=== PATIENT | male | born 1995 | race Caucasian/White ===

== ENCOUNTER 2019-03-28 20:24 | Emergency (ER) | payer SELFPAY ==
[2019-03-28] MEDS ORDERED: CODEINE 30MG/APAP 300MG TAB ONE (21:06)
--- NOTE | 2019-03-28 21:25 | ER ---
Nurse's Notes [facility] Name: Ward Lambert Age: 23 yrs Sex: Male : 1995 Arrival Date: 03/28/2019 Time: 20:27 Bed 18 Private MD: Diagnosis: Chest pain on breathing Presentation: 03/28 20:40 Presenting complaint: Patient states: R sided chest pain, sharp, started this morning. ca1 States, "I cannot take deep breaths because it hurts" Denies N/V/lightheadedness. Denies cough and congestion. Transition of care: patient was not received from another setting of care. Onset of symptoms was March 28, 2019. Risk Assessment: Do you want to hurt yourself or someone else? Patient reports no desire to harm self or others. Initial Sepsis Screen: Does the patient meet any 2 criteria? No. Patient's initial sepsis screen is negative. Does the patient have a suspected source of infection? No. Patient's initial sepsis screen is negative. Care prior to arrival: None. 20:40 Method Of Arrival: Ambulatory ca1 20:40 Acuity: DAMARIS 3 ca1 Historical: - Allergies: 20:43 No Known Allergies; ca1 - Home Meds: 20:43 None [Active]; ca1 - PMHx: 20:43 None; ca1 - PSHx: 20:43 None; ca1 - Immunization history:: Adult Immunizations not up to date, Flu vaccine is not up to date. - Coronavirus screen:: The patient has NOT traveled to [place], [place], or [place] in the past 14 days. The patient has NOT had contact with known/suspected case of Coronavirus?. - Social history:: Smoking status: Patient reports the use of cigarette tobacco products, smokes one-half pack cigarettes per day. - Family history:: not pertinent. - Ebola Screening: : Patient negative for fever greater than or equal to 101.5 degrees Fahrenheit, and additional compatible Ebola Virus Disease symptoms Patient denies exposure to infectious person Patient denies travel to an Ebola-affected area in the 21 days before illness onset No symptoms or risks identified at this time. Screenin:10 Abuse screen: Denies threats or abuse. Nutritional screening: No deficits noted. ea Tuberculosis screening: No symptoms or risk factors identified. Fall Risk None identified. Assessment: 21:05 General: Appears in no apparent distress. Behavior is calm, cooperative, appropriate ea for age. Pain: Complains of pain in chest. Neuro: Level of Consciousness is awake, alert, obeys commands, Oriented to person, place, time, situation. Cardiovascular: Patient's skin is warm and dry. Respiratory: Airway is patent Respiratory effort is even, unlabored, Respiratory pattern is regular, symmetrical. Derm: Skin is pink, warm \\T\\ dry. 21:10 Reassessment: Patient and/or family updated on plan of care and expected duration. Pain ea level reassessed. Patient is alert, oriented x 3, equal unlabored respirations, skin warm/dry/pink. Discharge instruction given to [patient, verbalized the understanding of instruction. Pt left ED ambulatory accompanied by significant other. Vital Signs: 20:43 BP 112 / 86; Pulse 80; Resp 16 S; Temp 98(O); Pulse Ox 97% on R/A; Weight 58.97 kg (R); ca1 Height 5 ft. 6 in. (167.64 cm) (R); Pain 8/10; 20:43 Body Mass Index 20.98 (58.97 kg, 167.64 cm) ca1 ED Course: 20:27 Patient arrived in ED. cl3 20:42 Triage completed. ca1 20:43 Arm band placed on right wrist. EKG completed in triage. Results shown to MD. ca1 20:45 Wilda Romero MD is Attending Physician. ma2 20:58 Ml Mcdowell RN is Primary Nurse. ea 21:05 Pulse ox on. NIBP on. ea 21:11 Patient has correct armband on for positive identification. Bed in low position. Call ea light in reach. 21:11 No provider procedures requiring assistance completed. Patient did not have IV access ea during this emergency room visit. Patient maintains SpO2 saturation greater than 95% on room air. Administered Medications: 21:04 Drug: Tylenol #3 (300 mg-30 mg) 2 tabs {Note: RASS 0.} Route: PO; ea 21:11 Follow up: Response: Medication administered at discharge. ea Outcome: 21:04 Discharge ordered by . ma2 21:11 Discharged to home ambulatory, with significant other. ea 21:11 Condition: stable 21:11 Discharge instructions given to patient, Instructed on discharge instructions, follow up and referral plans. medication usage, Demonstrated understanding of instructions, follow-up care, medications, Prescriptions given X 2. 21:12 Patient left the ED. ea Signatures: Ml Mcdowell RN RN Wilda Alaniz MD MD ma2 Monse Hi RN RN ca1 Fede Blake cl3
--- NOTE | 2019-03-28 21:25 | EDPHYS ---
Physician Documentation [facility] Name: Ward Lambert Age: 23 yrs Sex: Male : 1995 Arrival Date: 03/28/2019 Time: 20:27 Bed 18 Private MD: ED Physician Wilda Romero HPI: 03/28 21:02 This 23 yrs old Male presents to ER via Ambulatory with complaints of Chest Pain, ma2 Shortness Of Breath. 21:02 The patient or guardian reports chest pain that is located primarily in the anterior ma2 chest wall, right. Associated signs and symptoms: Pertinent negatives: cough, dizziness, headache. The chest pain is described as sharp. Severity of pain: At its worst the pain was mild in the emergency department the pain is unchanged. Historical: - Allergies: 20:43 No Known Allergies; ca1 - Home Meds: 20:43 None [Active]; ca1 - PMHx: 20:43 None; ca1 - PSHx: 20:43 None; ca1 - Immunization history:: Adult Immunizations not up to date, Flu vaccine is not up to date. - Coronavirus screen:: The patient has NOT traveled to [place], [place], or [place] in the past 14 days. The patient has NOT had contact with known/suspected case of Coronavirus?. - Social history:: Smoking status: Patient reports the use of cigarette tobacco products, smokes one-half pack cigarettes per day. - Family history:: not pertinent. - Ebola Screening: : Patient negative for fever greater than or equal to 101.5 degrees Fahrenheit, and additional compatible Ebola Virus Disease symptoms Patient denies exposure to infectious person Patient denies travel to an Ebola-affected area in the 21 days before illness onset No symptoms or risks identified at this time. ROS: 21:02 Constitutional: Negative for fever, chills, and weight loss. ma2 21:02 All other systems are negative. Exam: 21:02 Constitutional: This is a well developed, well nourished patient who is awake, alert, ma2 and in no acute distress. Eyes: Pupils equal round and reactive to light, extra-ocular motions intact. Lids and lashes normal. Conjunctiva and sclera are non-icteric and not injected. Cornea within normal limits. Periorbital areas with no swelling, redness, or edema. Neck: Trachea midline, no thyromegaly or masses palpated, and no cervical lymphadenopathy. Supple, full range of motion without nuchal rigidity, or vertebral point tenderness. No Meningismus. Chest/axilla: right upper chest ttp, Normal chest wall appearance and motion. Nontender with no deformity. No lesions are appreciated. Cardiovascular: Regular rate and rhythm with a normal S1 and S2. No gallops, murmurs, or rubs. Normal PMI, no JVD. No pulse deficits. Respiratory: Lungs have equal breath sounds bilaterally, clear to auscultation and percussion. No rales, rhonchi or wheezes noted. No increased work of breathing, no retractions or nasal flaring. Abdomen/GI: Soft, non-tender, with normal bowel sounds. No distension or tympany. No guarding or rebound. No evidence of tenderness throughout. Vital Signs: 20:43 BP 112 / 86; Pulse 80; Resp 16 S; Temp 98(O); Pulse Ox 97% on R/A; Weight 58.97 kg (R); ca1 Height 5 ft. 6 in. (167.64 cm) (R); Pain 8/10; 20:43 Body Mass Index 20.98 (58.97 kg, 167.64 cm) ca1 MDM: 20:45 Patient medically screened. ma2 21:02 Differential diagnosis: anxiety, chest wall pain, gastritis. CHRISTINE Risk Score: not ma2 applicable. Data reviewed: vital signs, nurses notes. Counseling: I had a detailed discussion with the patient and/or guardian regarding: the historical points, exam findings, and any diagnostic results supporting the discharge/admit diagnosis, the need for outpatient follow up. Response to treatment: the patient's symptoms have markedly improved after treatment. ED course: pain is s/p sudden cough and constant for 2 days worse with deep breath . 03/28 20:50 Order name: EKG - Nurse/Tech; Complete Time: 20:58 ma2 Administered Medications: 21:04 Drug: Tylenol #3 (300 mg-30 mg) 2 tabs {Note: RASS 0.} Route: PO; ea 21:11 Follow up: Response: Medication administered at discharge. ea Disposition: 03/28/19 21:04 Discharged to Home. Impression: Chest pain on breathing. - Condition is Stable. - Discharge Instructions: Chest Wall Pain. - Prescriptions for Tylenol- Codeine #3 300-30 mg Oral Tablet - take 2 tablet by ORAL route every 6 hours As needed; 30 tablet. - Work release form, Family Work Release, Medication Reconciliation Form, Thank You Letter, Antibiotic Education, Prescription Opioid Use form. - Follow up: Private Physician; When: Tomorrow; Reason: Continuance of care. Signatures: Ml Mcdowell RN RN ea Alzahri, Mohammad, MD MD ma2 Monse Hi RN RN ca1 Corrections: (The following items were deleted from the chart) 21:12 21:04 03/28/2019 21:04 Discharged to Home. Impression: Chest pain on breathing. ea Condition is Stable. Prescriptions for Tylenol-Codeine #3 300-30 mg Oral Tablet - take 2 tablet by ORAL route every 6 hours As needed; 30 tablet. and Forms are Medication Reconciliation Form, Thank You Letter, Antibiotic Education, Prescription Opioid Use. Follow up: Private Physician; When: Tomorrow; Reason: Continuance of care. philippe
--- NOTE | 2019-03-29 08:47 | EKG ---
Test Date: 2019-03-28 Test Time: 20:39:46 Oceanographer Assistant: JEANNETTE MEASUREMENT RESULTS: Intervals: Rate: 80 UT: 138 QRSD: 98 QT: 362 QTc: 417 [place]: P: 71 UT: 138 QRS: 78 T: 25 INTERPRETIVE STATEMENTS: Normal sinus rhythm Incomplete right bundle branch block Borderline ECG No previous ECG available for comparison Electronically Signed On 03-29-19 08:46:18 SERVER SECURITY ADMINISTRATOR by Alan Trevino
[2019-03-30 21:38] VITALS: BP 112/86; TEMP 98; O2SAT 97
== END 2019-03-28 21:12 | disposition home or self-care (01) ==
LOC: ER 20:24
DX: R07.1 Chest pain on breathing (principal); F17.210 Nicotine dependence, cigarettes, uncomplicated
CPT/HCPCS: 93005; 99284